=== PATIENT | female | born 1990 | race African-American/Black ===

== ENCOUNTER 2020-07-14 12:11 | Inpatient (IN) ==
[2020-07-14] MEDS ORDERED: Buffered Lidocaine 1% SYRIN 1 ml INTRADERM ONE ×2 (13:11→17:11)
[2020-07-14] MEDS ORDERED: Morphine 10 MG/ML VIAL (1 ml) IV ONE (13:14)
[2020-07-14] MEDS ORDERED: Promethazine INJ(RESTRICTED) 25 MG/ML 1 ml VIAL IV ONE (13:15)
[2020-07-14] MEDS ORDERED: Lactated Ringers 1000 ml BAG 1,000 ML IV ONE (17:11)
[2020-07-14 17:39] LABS: ABS Lymphocytes 0.9 10^3/ul (1.0-4.8); ABS Monocytes 0.8 10^3/ul (0-0.8); ABS Neutrophils 5.6 10^3/ul (1.5-7.7); Eosinophil % 0.6 %; Hematocrit 35 % (35-47); Hemoglobin 11.8 g/dL (12.0-16.0); Lymphocyte % 11.9 %; Mean Corpuscular HGB Conc 34 g/dL (31-36); Mean Corpuscular Hemoglobin 32 pg (27-31); Mean Corpuscular Volume 95 fL (80-97); Mean Platelet Volume 10.3 fL (7.4-10.4); Nucleated Red Blood Cells % 0.1; Platelet Count 169 10^3/uL (150-450); Red Blood Count 3.64 10^6 /uL (3.70-4.87); Red Cell Distribution Width 13 % (10-15); White Blood Count 7.3 10^3/uL (3.5-10.8)
[2020-07-14 17:56] LABS: Urine Benzodiazepine Screen None Detected (None Detect); Urine Cannabinoids Screen None Detected (None Detect); Urine Opiates Screen None Detected (None Detect)
[2020-07-14] MEDS ORDERED: Lactated Ringers 1000 ml BAG 1,000 ML IV SCH (18:00)
[2020-07-14] MEDS ORDERED: Morphine 10 MG/ML VIAL (1 ml) IM ONE (21:58)
[2020-07-14] MEDS ORDERED: Promethazine INJ(RESTRICTED) 25 MG/ML 1 ml VIAL IV PRN (21:59)
[2020-07-15] MEDS ORDERED: Morphine 10 MG/ML VIAL (1 ml) IV ONE (00:30)
[2020-07-15] MEDS ORDERED: OBEPIDURAL 250 ML EPIDURAL ONE ×2 (03:25→16:57)
[2020-07-15] MEDS ORDERED: Bupivacaine 0.25% SDV PF 10 ML VIAL INJ ONE ×4 (03:44→19:56)
[2020-07-15] MEDS ORDERED: Phenylephrine 40 mcg/mL 10mL (400mcg) SYRINGE IV PUSH PRN ×2 (04:17)
[2020-07-15] MEDS ORDERED: EPHEDrine (Pressors) 50 MG/ML VIAL IV PUSH PRN ×2 (04:17)
[2020-07-15] MEDS ORDERED: Sodium Citrate/Citric Acid LIQ 15 ML UDC PO PRN (04:17)
[2020-07-15] MEDS ORDERED: Lactated Ringers 1000 ml BAG 1,000 ML IV ONE (04:17)
[2020-07-15] MEDS ORDERED: OBEPIDURAL 250 ML EPIDURAL SCH (05:00)
[2020-07-15] MEDS: Lactated Ringers 1000 ml BAG 1,000 ML IV SCH ×3 (07:15→17:10)
[2020-07-15] MEDS ORDERED: Oxytocin in LR 20 UNITS/1,000 ML BAG IVPB SCH (09:15)
[2020-07-15] MEDS: Clindamycin 900 MG/D5W BAG 900 MG/50 ML BAG IVPB SCH (19:57)
[2020-07-15] MEDS: Ampicillin ADVAN 2 GM in NS 0.9% 100 ml BAG 100 ML IVPB SCH (20:24)
[2020-07-15] MEDS ORDERED: Gentamicin ADULT 320 MG in NS 0.9% 100 ml BAG 100 ML IVPB SCH (20:30)
[2020-07-15] MEDS ORDERED: ceFOXitin 2 GM IVPREMIX 2 GM/50 ML BAG IVPB ONE (21:57)
[2020-07-15] MEDS ORDERED: fentaNYL 100 mcg/2 ml 50 MCG/ML VIAL ONE (22:06)
[2020-07-15] MEDS ORDERED: Morphine PF AMP (0.5MG/ML) 5 MG/10 ML AMP ONE (22:06)
[2020-07-15] MEDS ORDERED: Phenylephrine 40 mcg/mL 10mL (400mcg) SYRINGE ONE (22:32)
[2020-07-15] MEDS ORDERED: Ondansetron 4 mg VIAL 2 MG/ML 2 ml VIAL ONE (22:32)
[2020-07-15] MEDS ORDERED: Oxytocin 10 UNITS/ML 1 ML VIAL ONE (22:57)
[2020-07-15] MEDS ORDERED: Ondansetron 4 mg VIAL 2 MG/ML 2 ml VIAL IV PRN (23:08)
[2020-07-15] MEDS ORDERED: Metoclopramide 5 MG/ML VIAL (10 mg) IV PRN ×2 (23:08→23:11)
[2020-07-15] MEDS ORDERED: Naloxone 0.4 mg VIAL 0.4 mg/ml 1 ml VIAL IV PRN ×2 (23:08→23:11)
[2020-07-15] MEDS ORDERED: HYDROmorphone 1 MG/1 ML SYRINGE IV PRN (23:11)
[2020-07-15] MEDS ORDERED: Witch Hazel PAD JAR TOPICAL PRN (23:43)
[2020-07-15] MEDS ORDERED: Lactated Ringers 1000 ml BAG 1,000 ML IV SCH (23:45)
[2020-07-16] MEDS: Ampicillin ADVAN 2 GM in NS 0.9% 100 ml BAG 100 ML IVPB SCH (03:05)
[2020-07-16] MEDS: Clindamycin 900 MG/D5W BAG 900 MG/50 ML BAG IVPB SCH (05:21)
[2020-07-16 06:13] LABS: ABS Basophils 0.1 10^3/ul (0-0.2); ABS Lymphocytes 0.9 10^3/ul (1.0-4.8); ABS Neutrophils 10.8 10^3/ul (1.5-7.7); Eosinophil % 0.3 %; Hematocrit 30 % (35-47); Hemoglobin 10.2 g/dL (12.0-16.0); Lymphocyte % 6.8 %; Mean Corpuscular HGB Conc 34 g/dL (31-36); Mean Corpuscular Hemoglobin 32 pg (27-31); Mean Corpuscular Volume 95 fL (80-97); Mean Platelet Volume 9.9 fL (7.4-10.4); Platelet Count 148 10^3/uL (150-450); Red Blood Count 3.19 10^6 /uL (3.70-4.87); Red Cell Distribution Width 13 % (10-15); White Blood Count 12.7 10^3/uL (3.5-10.8)
[2020-07-18 10:16] VITALS: BP 120/78
== END 2020-07-18 17:10 | disposition home or self-care (01) | DRG 540 ==
LOC: MCHOBOUT 12:11 → MCHOB 17:12
PROVIDERS: ADMIT Midwife; ATTEND Obstetrics & Gynecology

== ENCOUNTER 2024-03-03 14:59 | Inpatient (IN) ==
[2024-03-03] MEDS ORDERED: Lidocaine 1% VIAL 10 MG/ML 30 ML VIAL INJ PRN (16:01)
[2024-03-03] MEDS: Lactated Ringers 1000 ml BAG 1,000 ML IV ONE (16:22)
[2024-03-03 16:24] LABS: ABS Eosinophils 0.1 10^3/uL (0.0-0.5); ABS Lymphocytes 1.2 10^3/uL (1.0-4.8); ABS Monocytes 0.6 10^3/uL (0.0-0.9); ABS Neutrophils 4.9 10^3/uL (1.5-7.6); ABS Nucleated RBC 0.01 10^3/ul; Hematocrit 34.9 % (35-45); Hemoglobin 11.4 g/dL (11.5-14.3); Lymphocyte % 17.8 %; Mean Corpuscular Hemoglobin 29.9 pg (27-33); Mean Corpuscular Hgb Conc 32.7 g/dL (31-36); Mean Corpuscular Volume 91.2 fL (80-97); Mean Platelet Volume 9.6 fL (7.5-11.2); Nucleated Red Blood Cells % 0.1 %/100WBC (0.0-0.8); Platelet Count 202 10^3/uL (150-450); Red Blood Count 3.83 10^6/uL (3.63-4.92); Red Cell Distribution Width 14.5 % (12-17); White Blood Count 6.8 10^3/uL (3.8-11.8)
[2024-03-03 16:42] LABS: Urine Benzodiazepine Screen None Detected (None Detect); Urine Cannabinoids Screen None Detected (None Detect); Urine Opiates Screen None Detected (None Detect)
[2024-03-03] MEDS: Lactated Ringers 1000 ml BAG 1,000 ML IV SCH (17:10)
[2024-03-03] MEDS: OBEPIDURAL (200 ML) 200 ML EPIDURAL SCH (17:30)
[2024-03-03] MEDS ORDERED: Sodium Citrate/Citric Acid LIQ 15 ML UDC PO PRN (17:38)
[2024-03-03] MEDS ORDERED: Phenylephrine 40 mcg/mL 10mL (400mcg) SYRINGE IV PUSH PRN ×2 (17:38)
[2024-03-03 19:46] LABS: Urine Bacteria Absent /HPF (Absent); Urine Red Blood Cell 3+(>10/hpf) /HPF (0-Trace); Urine Squamous Epithelial Cell Present /HPF (Absent); Urine White Blood Cell Trace(0-5/hpf) /HPF (0-Trace)
[2024-03-03 19:58] LABS: Urine Appearance Slightly Cloudy; Urine Bilirubin Negative (Negative); Urine Color Straw; Urine Ketones 2+ (40mg/dL) (Negative)
[2024-03-03 19:59] LABS: Urine Blood 3+ (Large) (Negative); Urine Nitrite Negative (Negative); Urine Protein Trace (Negative); Urine Urobilinogen 1.0 (Negative) (Negative)
[2024-03-03] MEDS ORDERED: Bupivacaine 0.5% SDV PF 30ML VIAL ONE (22:32)
[2024-03-04] MEDS: Lactated Ringers 1000 ml BAG 1,000 ML IV ONE (03:15)
[2024-03-04] MEDS: OBEPIDURAL (200 ML) 200 ML EPIDURAL ONE (03:33)
[2024-03-04] MEDS: Lactated Ringers 1000 ml BAG 1,000 ML IV SCH (03:46)
[2024-03-04] MEDS ORDERED: Lidocaine 2% w/ EPI 1:200,000 MPF 20 ML SDV VIAL ONE (06:29)
[2024-03-04] MEDS ORDERED: Morphine PF AMP (0.5MG/ML) 5 MG/10 ML AMP ONE (10:07)
[2024-03-04] MEDS ORDERED: Phenylephrine IV 10 MG/ML 1 ml VIAL ONE (10:08)
[2024-03-04] MEDS ORDERED: Oxytocin 10 UNITS/ML 1 ML VIAL ONE (10:08)
[2024-03-04] MEDS ORDERED: Ondansetron 4 mg VIAL 2 MG/ML 2 ml VIAL ONE (10:08)
[2024-03-04] MEDS: ceFOXitin 2 GM IVPREMIX 2 GM/50 ML BAG IVPB ONE (10:21)
[2024-03-04] MEDS ORDERED: Metoclopramide 5 MG/ML VIAL (10 mg) IV PRN (10:55)
[2024-03-04] MEDS ORDERED: Naloxone 0.4 mg VIAL 0.4 mg/ml 1 ml VIAL IV PUSH PRN (10:55)
[2024-03-04] MEDS ORDERED: Ondansetron 4 mg VIAL 2 MG/ML 2 ml VIAL IV PRN (10:55)
[2024-03-04] MEDS ORDERED: Glycerin ADULT 2.4 gm SUPP PR PRN (12:00)
[2024-03-04] MEDS ORDERED: Lactated Ringers 1000 ml BAG 1,000 ML IV SCH (12:00)
[2024-03-04] MEDS: Acetaminophen IV 1 GM/100ML 1,000 MG/100 ML BAG IV PRN (12:07)
[2024-03-04] MEDS: Oxytocin in LR 20,000 MILLI.UNIT/1,000 ML BAG IV SCH (15:25)
[2024-03-04] MEDS: Lidocaine 1.5% EPI 1:200,000 30 ML SDV ONE (17:29)
[2024-03-04] MEDS: Buffered Lidocaine 1% SYRIN 1 ml INTRADERM ONE ×2 (17:29)
[2024-03-05 07:57] LABS: ABS Eosinophils 0.1 10^3/uL (0.0-0.5); ABS Lymphocytes 0.7 10^3/uL (1.0-4.8); ABS Monocytes 0.8 10^3/uL (0.0-0.9); ABS Neutrophils 10.8 10^3/uL (1.5-7.6); Eosinophil % 0.6 %; Hematocrit 26.8 % (35-45); Lymphocyte % 5.4 %; Mean Corpuscular Hemoglobin 30.7 pg (27-33); Mean Corpuscular Hgb Conc 33.6 g/dL (31-36); Mean Corpuscular Volume 91.5 fL (80-97); Mean Platelet Volume 9.4 fL (7.5-11.2); Platelet Count 147 10^3/uL (150-450); Red Blood Count 2.93 10^6/uL (3.63-4.92); Red Cell Distribution Width 14.9 % (12-17); White Blood Count 12.5 10^3/uL (3.8-11.8)
[2024-03-05] MEDS: Witch Hazel PAD JAR TOPICAL PRN (10:47)
[2024-03-07 08:44] VITALS: BP 122/71
== END 2024-03-07 15:30 | disposition home or self-care (01) | DRG 540 ==
LOC: MCHOBOUT 14:59 → MCHOB 16:09
PROVIDERS: ADMIT Obstetrics & Gynecology; ATTEND Obstetrics & Gynecology